=== PATIENT | female | born 1995 | race Caucasian/White ===

== ENCOUNTER 2018-11-28 11:01 | Inpatient (IN) | payer MEDICAID ==
[2018-11-28] MEDS ORDERED: Sodium Chloride 0.9% 10 ML Syringe FLUSH PRN (13:18)
[2018-11-28] MEDS ORDERED: Ondansetron 4 MG/2 ML SDV IV PRN (13:18)
[2018-11-28] MEDS ORDERED: Calcium Carbonate 500 MG Tab.Chew PO PRN (13:18)
[2018-11-28] MEDS ORDERED: fentaNYL 100 MCG/2 ML SDV IVPUSH PRN (13:18)
--- NOTE | 2018-11-28 13:28 | PCM.LDHP ---
L&D History of Present Illness - General Date of Service: 11/28/18 Admit Problem/Dx: Patient Status Order with Admit Dx/Problem 11/28/18 13:18 Patient Status [ADT] Routine Admission Diagnosis/Problem Admission Diagnosis/Problem Labor established Source of Information: Patient History Limitations: Reports: No Limitations - History of Present Illness Introduction:: 11/28/18 Kaleigh is a 23 yo at 40 0/7 here with SROM at home and latent labor. Her amnisure is positive here, she is unsure of a rupture time and thought it was just mucous. She started feeling "wet" around 1-2 am today. Her contractions are every 3-5 and palpate mild to moderate. SVE 4-5/50/-1 with membranes still felt. She is GBS neg, all STI's neg, rubella immune. 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 Para: 0 LMP (Approximate): Other Neuro History: hx epilepsy - Infectious Disease History Infectious Disease History: Reports: Chicken Pox Social & Family History - Family History Family Medical History: Noncontributory - Tobacco Use Smoking Status *Q: Never Smoker Second Hand Smoke Exposure: No - Caffeine Use Caffeine Use: Reports: Coffee, Soda - Recreational Drug Use Recreational Drug Use: No H&P Review of Systems - Review of Systems: Review Of Systems: See Below General: Reports: No Symptoms HEENT: Reports: No Symptoms Pulmonary: Reports: No Symptoms Cardiovascular: Reports: No Symptoms Gastrointestinal: Reports: No Symptoms Genitourinary: Reports: No Symptoms Musculoskeletal: Reports: No Symptoms Skin: Reports: No Symptoms Psychiatric: Reports: No Symptoms Neurological: Reports: No Symptoms Hematologic/Lymphatic: Reports: No Symptoms Immunologic: Reports: No Symptoms L&D Exam - Exam Exam: See Below - Vital Signs Vital Signs: Last Vital Signs Temp Pulse 133 H 11/28/18 11:40 Resp 18 11/28/18 11:40 BP 112/80 11/28/18 11:40 Pulse Ox 97 11/28/18 11:40 Weight: 79.5 kg - OB Specific Contraction Duration (sec): 30-110 Contraction Frequency (min): 2.5-9 Contraction Intensity: Mild to Moderate Movement: Active Heart Tones: Present Heart Tones per Min: 140 Heart Rate (FHR) Variability: Moderate (6-25 bmp) Presentation: Vertex Estimated Weight: 7 1/2# - Coley Score Coley Score Cervix Position: Midposition Coley Score Consistency: Soft Coley Score Effacement: 31-50% Coley Score Dilation: 3-4 cm Coley Score 's Station: -1 ,0 Coley Score Total: 8 - Exam General: Alert, Oriented HEENT: PERRLA, Conjunctiva Clear, EOMI, Hearing Intact, Mucosa Moist & [place], Nares Patent, Normal Nasal Septum, Posterior Pharynx Clear Neck: Supple, Trachea Midline Lungs: Clear to Auscultation, Normal Respiratory Effort Cardiovascular: Regular Rate, Regular Rhythm GI/Abdominal Exam: Normal Bowel Sounds, Soft, Non-Tender, No Organomegaly, No Distention, No Abnormal Bruit, No Mass, Pelvis Stable Rectal Exam: Normal Exam, Normal Rectal Tone Genitourinary: Normal external exam, Normal bimanual exam, Cervical dilitation Back Exam: Normal Inspection, Full Range of Motion Extremities: Normal Inspection, Normal Range of Motion, Non-Tender, No Pedal Edema, Normal Capillary Refill Skin: Warm, Dry, Intact Neurological: Cranial Nerves Intact, Reflexes Equal Bilateral Psychiatric: Alert, Normal Affect, Normal Mood - Patient Data Lab Results Last 24 hrs: Laboratory Results - last 24 hr 11/28/18 11/28/18 11/28/18 Range/Units 11:09 11:59 12:06 Urine Color Yellow (YELLOW) Urine Appearance Cloudy A (CLEAR) Urine pH 6.0 (5.0-8.0) Ur Specific [place] >= 1.030 (1.008-1.030) Urine Protein 30 H (NEGATIVE) mg/dL Urine Glucose (UA) Negative (NEGATIVE) mg/dL Urine Ketones Trace H (NEGATIVE) mg/dL Urine Occult Blood Large H (NEGATIVE) Urine Nitrite Negative (NEGATIVE) Urine Bilirubin Small H (NEGATIVE) Urine Urobilinogen 1.0 (0.2-1.0) EU/dL Ur Leukocyte Esterase Small H (NEGATIVE) Urine RBC Cancelled Urine WBC Cancelled Ur Epithelial Cells Cancelled Amorphous Sediment Cancelled Urine Bacteria Cancelled Urine Mucus Cancelled Urine Other Cancelled Urinalysis Comment Cancelled Membrane Rupture Positive H (NEGATIVE) Urine Opiates Screen Negative (NEGATIVE) Ur Oxycodone Screen Negative (NEGATIVE) Urine Methadone Screen Negative (NEGATIVE) Ur Propoxyphene Screen Negative (NEGATIVE) Ur Barbiturates Screen Negative (NEGATIVE) Ur Tricyclics Screen Negative (NEGATIVE) Ur Phencyclidine Scrn Negative (NEGATIVE) Ur Amphetamine Screen Negative (NEGATIVE) U Methamphetamines Scrn Negative (NEGATIVE) Urine MDMA Screen Negative (NEGATIVE) U Benzodiazepines Scrn Negative (NEGATIVE) U Cocaine Metab Screen Negative (NEGATIVE) U Marijuana (THC) Screen Negative (NEGATIVE) Result Diagrams: 11/28/18 13:18 - Problem List (1) Term SNOMED Code(s): 52440043 ICD Code: Z34.90 - ENCNTR FOR SUPRVSN OF NORMAL , UNSP, UNSP TRIMESTER Status: Acute Current Visit: Yes (2) Spontaneous rupture of amniotic membranes SNOMED Code(s): 599777245 ICD Code: UKS4138 - Status: Acute Current Visit: Yes (3) Active labor at term SNOMED Code(s): 32740592 ICD Code: [id number] - Status: Acute Current Visit: Yes Problem List Initiated/Reviewed/Updated: Yes Orders Last 24hrs: Active Orders 24 hr Category Date Time Status Patient Status [ADT] Routine ADT 11/28/18 13:18 Ordered Communication Order [RC] ASDIRECTED Care 11/28/18 13:18 Ordered Heart Tones [RC] PER UNIT ROUTINE Care 11/28/18 13:18 Ordered Notify Provider Vital Signs [RC] PRN Care 11/28/18 13:19 Ordered Notify Provider [RC] PRN Care 11/28/18 13:18 Ordered OB Check [OM.PC] Click to Edit Care 11/28/18 12:37 Ordered Up ad Haylee [RC] ASDIRECTED Care 11/28/18 13:18 Ordered VTE/DVT Education [RC] Click to Edit Care 11/28/18 13:20 Ordered Vital Signs [RC] PER UNIT ROUTINE Care 11/28/18 13:18 Ordered Regular Diet [DIET] Diet 11/28/18 Lunch Ordered CBC WITH AUTO DIFF [HEME] Routine Lab 11/28/18 13:18 Ordered UA W/MICROSCOPIC [URIN] Routine Lab 11/28/18 11:09 Ordered UA W/O MICROSCOPIC [URIN] Routine Lab 11/28/18 11:09 Ordered Calcium Carbonate [Tums] Med 11/28/18 13:18 Ordered 1,000 mg PO Q2HR PRN Ondansetron [Zofran] Med 11/28/18 13:18 Ordered 4 mg IV Q4H PRN Oxytocin/Normal Saline [Pitocin in NS 20 Units/1,000 ML Med 11/28/18 13:30 Ordered ] 20 unit in 1,000 ml IV ASDIRECTED Sodium Chloride 0.9% [Saline Flush] Med 11/28/18 13:18 Ordered 10 ml FLUSH ASDIRECTED PRN fentaNYL [Sublimaze] Med 11/28/18 13:18 Ordered 100 mcg IVPUSH Q1H PRN DVT/VTE Prophylaxis Reflex [OM.PC] Routine Oth 11/28/18 13:18 Ordered Saline Lock Insert [OM.PC] Routine Oth 11/28/18 13:18 Ordered Resuscitation Status Routine Resus Stat 11/28/18 13:18 Ordered Medication Orders Calcium Carbonate/Glycine (Tums) 1,000 mg PO Q2HR PRN PRN Reason: Indigestion Fentanyl (Sublimaze) 100 mcg IVPUSH Q1H PRN PRN Reason: Pain (moderate 4-6) Ondansetron HCl (Zofran) 4 mg IV Q4H PRN PRN Reason: Nausea/Vomiting Sodium Chloride (Saline Flush) 10 ml FLUSH ASDIRECTED PRN PRN Reason: Keep Vein Open Assessment/Plan Comment:: 11/28/18 23 yo at 40 0/7 weeks gestation SROM at unknown time, no meconium seen but scant fluid so unable to assess SVE 50/-1, latent labor Plan: Plans non medicated labor Anticipate Monitor contraction pattern and start pitocin or break the remaining bag of water if no progress due to unknown rupture time
--- NOTE | 2018-11-28 15:11 | PCM.PNLD ---
Labor Progress Note - VS & Meds Vital Signs: Last Vital Signs Temp 37.2 C 11/28/18 12:34 Pulse 96 11/28/18 12:34 Resp 18 11/28/18 12:34 BP 112/80 11/28/18 11:40 Pulse Ox 99 11/28/18 12:34 Active Medications: Current Medications Calcium Carbonate/Glycine (Tums) 1,000 mg PO Q2H PRN PRN Reason: Indigestion Fentanyl (Sublimaze) 100 mcg IVPUSH Q1H PRN PRN Reason: Pain (moderate 4-6) Oxytocin/Sodium Chloride (Pitocin In Ns 20 Units/1,000 Ml) 20 unit in 1,000 mls @ 999 mls/hr IV ASDIRECTED EARLINE; Protocol Oxytocin/Sodium Chloride (Pitocin In Ns 20 Units/1,000 Ml) 20 unit in 1,000 mls @ 6 mls/hr IV TITRATE EARLINE; Protocol Ondansetron HCl (Zofran) 4 mg IV Q4H PRN PRN Reason: Nausea/Vomiting Sodium Chloride (Saline Flush) 10 ml FLUSH ASDIRECTED PRN PRN Reason: Keep Vein Open - Uterine Contractions Uterine Monitoring Mode: External [place] Contraction Frequency (min): 2.5-9 Contraction Duration (sec): 30-110 Contraction Intensity: Mild to Moderate Uterine Resting Tone: Soft - Monitoring Monitor Mode: External Ultrasound Heart Rate (FHR) Variability: Moderate (6-25 bmp) Accelerations: Present, 15x15 Decelerations: None Strip Review: Category I - Vaginal Exam Dilation (cm): 5 Effacement (Percent): 50 Station: Ballotable Cervical Position: Midposition Sterile Vaginal Exam Performed By: Megan Dai - Labor Progress (Free Text) Labor Progress: 11/28/18 [place]ROE was much more ballotable this time. She does feel scant consistent leaking but there is no pooling. Her contraction pattern has not increased and they are not anymore painful. We will start pitocin titrate per protocol for unknown rupture time and inability to break the rest of the amniotic sac due to being ballotable. Patient is agreeable to this plan, all questions answered.
[2018-11-28] MEDS ORDERED: Naloxone 0.4 MG/ML SDV ONE (16:39)
[2018-11-28] MEDS ORDERED: Mineral Oil 10 ML Bottle ONE (16:39)
[2018-11-28] MEDS ORDERED: Oxytocin 10 Units/1 ML SDV ONE (16:39)
[2018-11-28] MEDS ORDERED: Lidocaine 1% 50 ML MDV ONE (16:39)
--- NOTE | 2018-11-28 20:38 | PCM.PNLD ---
Labor Progress Note - VS & Meds Vital Signs: Last Vital Signs Temp 37.2 C 11/28/18 19:30 Pulse 119 H 11/28/18 16:15 Resp 18 11/28/18 18:30 BP 112/78 11/28/18 18:30 Pulse Ox 97 11/28/18 18:30 Active Medications: Current Medications Calcium Carbonate/Glycine (Tums) 1,000 mg PO Q2H PRN PRN Reason: Indigestion Fentanyl (Sublimaze) 100 mcg IVPUSH Q1H PRN PRN Reason: Pain (moderate 4-6) Oxytocin/Sodium Chloride (Pitocin In Ns 20 Units/1,000 Ml) 20 unit in 1,000 mls @ 999 mls/hr IV ASDIRECTED EARLINE; Protocol Oxytocin/Sodium Chloride (Pitocin In Ns 20 Units/1,000 Ml) 20 unit in 1,000 mls @ 6 mls/hr IV TITRATE EARLINE; Protocol Last Titration: 11/28/18 18:30 Dose: 5 munits/min, 15 mls/hr Ondansetron HCl (Zofran) 4 mg IV Q4H PRN PRN Reason: Nausea/Vomiting Sodium Chloride (Saline Flush) 10 ml FLUSH ASDIRECTED PRN PRN Reason: Keep Vein Open Discontinued Medications Lidocaine HCl (Xylocaine 1%) Confirm Administered Dose 100 ml .ROUTE .STK-MED ONE Stop: 11/28/18 16:40 Mineral Oil (Muri-Lube) Confirm Administered Dose 10 ml .ROUTE .STK-MED ONE Stop: 11/28/18 16:40 Naloxone HCl (Narcan) Confirm Administered Dose 0.4 mg .ROUTE .STK-MED ONE Stop: 11/28/18 16:40 Oxytocin (Pitocin) Confirm Administered Dose 10 unit .ROUTE .STK-MED ONE Stop: 11/28/18 16:40 - Uterine Contractions Uterine Monitoring Mode: External [place] Contraction Frequency (min): 2-2.5 Contraction Duration (sec): 80-90 Contraction Intensity: Strong Uterine Resting Tone: Soft - Monitoring Monitor Mode: External Ultrasound Heart Rate (FHR) Variability: Moderate (6-25 bmp) Accelerations: Present, 15x15 Decelerations: None Strip Review: Category I - Vaginal Exam Dilation (cm): 6 Effacement (Percent): 70 Station: Ballotable Cervical Position: Midposition Sterile Vaginal Exam Performed By: Megan Dai - Labor Progress (Free Text) Labor Progress: 11/28/18 Patient progressed nicely in the tub and with pitocin. The head is well applied at this check and AROM is performed of the remaining bag. Large amount of clear fluid is seen. Category 1 tracing currently. Mother coping well with breathing and is thinking about nitrous oxide. Anticipate of female infant.
[2018-11-28] MEDS ORDERED: Lidocaine 1% 20 ML MDV INJECT ONE (23:28)
[2018-11-29] MEDS ORDERED: Lanolin 100% Cream 40 GM Tube TOP ONE
[2018-11-29] MEDS ORDERED: Witch Hazel Medicated Pads 100/Jar TOP PRN
[2018-11-29] MEDS ORDERED: Docusate Sodium 100 MG Cap PO PRN
[2018-11-29] MEDS ORDERED: Witch Hazel Medicated Pads 100/Jar TOP ONE
[2018-11-29] MEDS ORDERED: Benzocaine 20% Top Spray 56 GM Bottle TOP PRN
[2018-11-29] MEDS ORDERED: Hydrocortisone 2.5% Crm 30 GM Tube TOP PRN
[2018-11-29] MEDS ORDERED: Acetaminophen 325 MG Tab, 50 Tab Bulk Bottle PO PRN
[2018-11-29] MEDS ORDERED: Benzocaine 20% Top Spray 56 GM Bottle TOP ONE
[2018-11-29] MEDS ORDERED: Ibuprofen 200 MG Tab, 24 Tab Bulk Bottle PO PRN
[2018-11-29] MEDS ORDERED: Lanolin 100% Cream 40 GM Tube TOP PRN
--- NOTE | 2018-11-29 00:11 | PCM.DEL ---
L & D Note - General Info Date of Service: 11/28/18 Mother's Due Date: 11/28/18 - Delivery Note Labor: Augmented by ARM, Augmented by Oxytocin Delivery Outcome: Livebirth Delivery Method: Spontaneous Vaginal Delivery-Single Infant Delivery Mode: Spontaneous Presentation: Right Occiput Anterior (FLAVIO) Nuchal Cord: Present Anesthesia Type: Nitrous Oxide Anesthetic: Lidocaine (Xylocaine) 1% Plain Local Anesthetic Volume: Other (9 cc) Amniotic Fluid Description: Clear Episiotomy Type: None Laceration: 2nd Degree, Perineal Suture size: 3-0 Placenta: Intact, Spontaneous Cord: 3 Vessels Estimated Blood Loss: 250 Resuscitation Needed: No [place]: Bulb Syringe, Stimulated, Warmed Provider: Megan Dai Score 1 min: 9 Score 5 min: 9 Second Stage Interventions: Reports: Second Nurse Assessed Progress of Descent, Second Nurse Reviewed Contraction Pattern, Second Nurse Reviewed Heart Tones, Encouragement Given, Pushing Effectively, Pushing, Knee Chest Position Delivery Comments (Free Text/Narrative):: 11/28/18 23 yo G1 now P1 delivered a viable female infant at 2302. She had a positive amnisure and leaked a scant amount of fluid through out the day. There was a large bag ruptured artificially at 2022 that was clear. She was also augmented with pitocin. She initially tried to push with stirrups on her back and baby did not tolerate this. At that time pitocin was shut off and mother was rolled onto hands and knees which baby tolerated very well and this was the delivery position. She attempted nitrous oxide for a short period around 7 cm and did not like this. She ended up delivering without anesthesia. The baby delivered in FLAVIO position. There was a loose nuchal cord that was reduced, a cord around the arm, and again around the leg. There were no complications. Baby was warmed and dried and given to mother right at . Delayed cord clamping completed. The placenta delivered intact with a 3 vessel cord. Fundus firm. There was a second degree perineal laceration that was repaired with 1% lidocaine and 3-0 vicryl. Baby girl apgars 9,9. Wt 8 lb 1 oz, length 20.5 in. She cried spontaneously at and has already been to breast. Stages of labor: 2 - General Info Date of Service: 11/28/18 Functional Status: Reports: Pain Controlled - Review of Systems General: Reports: No Symptoms HEENT: Reports: No Symptoms Pulmonary: Reports: No Symptoms Cardiovascular: Reports: No Symptoms Gastrointestinal: Reports: No Symptoms Genitourinary: Reports: No Symptoms Musculoskeletal: Reports: No Symptoms Skin: Reports: No Symptoms Neurological: Reports: No Symptoms Psychiatric: Reports: No Symptoms - Patient Data Vitals - Most Recent: Last Vital Signs Temp 37.6 C 11/28/18 20:30 Pulse 122 H 11/28/18 20:30 Resp 18 11/28/18 20:30 BP 119/78 11/28/18 20:30 Pulse Ox 98 11/28/18 20:30 Weight - Most Recent: 79.5 kg Lab Results Last 24 Hours: Laboratory Results - last 24 hr 11/28/18 11/28/18 11/28/18 Range/Units 11:09 11:59 12:06 WBC (4.5-11.0) K/uL RBC (3.30-5.50) M/uL Hgb (12.0-15.0) g/dL Hct (36.0-48.0) % MCV (80-98) fL MCH (27-31) pg MCHC (32-36) % Plt Count (150-400) K/uL Neut % (Auto) (36-66) % Lymph % (Auto) (24-44) % [place] % (Auto) (2-6) % Eos % (Auto) (2-4) % Baso % (Auto) (0-1) % Urine Color Yellow (YELLOW) Urine Appearance Cloudy A (CLEAR) Urine pH 6.0 (5.0-8.0) Ur Specific [place] >= 1.030 (1.008-1.030) Urine Protein 30 H (NEGATIVE) mg/dL Urine Glucose (UA) Negative (NEGATIVE) mg/dL Urine Ketones Trace H (NEGATIVE) mg/dL Urine Occult Blood Large H (NEGATIVE) Urine Nitrite Negative (NEGATIVE) Urine Bilirubin Small H (NEGATIVE) Urine Urobilinogen 1.0 (0.2-1.0) EU/dL Ur Leukocyte Esterase Small H (NEGATIVE) Urine RBC Cancelled Urine WBC Cancelled Ur Epithelial Cells Cancelled Amorphous Sediment Cancelled Urine Bacteria Cancelled Urine Mucus Cancelled Urine Other Cancelled Urinalysis Comment Cancelled Membrane Rupture Positive H (NEGATIVE) Urine Opiates Screen Negative (NEGATIVE) Ur Oxycodone Screen Negative (NEGATIVE) Urine Methadone Screen Negative (NEGATIVE) Ur Propoxyphene Screen Negative (NEGATIVE) Ur Barbiturates Screen Negative (NEGATIVE) Ur Tricyclics Screen Negative (NEGATIVE) Ur Phencyclidine Scrn Negative (NEGATIVE) Ur Amphetamine Screen Negative (NEGATIVE) U Methamphetamines Scrn Negative (NEGATIVE) Urine MDMA Screen Negative (NEGATIVE) U Benzodiazepines Scrn Negative (NEGATIVE) U Cocaine Metab Screen Negative (NEGATIVE) U Marijuana (THC) Screen Negative (NEGATIVE) 11/28/18 Range/Units 13:18 WBC 8.5 (4.5-11.0) K/uL RBC 4.41 (3.30-5.50) M/uL Hgb 13.4 (12.0-15.0) g/dL Hct 40.1 (36.0-48.0) % MCV 91 (80-98) fL MCH 30 (27-31) pg MCHC 33 (32-36) % Plt Count 303 (150-400) K/uL Neut % (Auto) 62 (36-66) % Lymph % (Auto) 27 (24-44) % [place] % (Auto) 11 H (2-6) % Eos % (Auto) 1 L (2-4) % Baso % (Auto) 0 (0-1) % Urine Color (YELLOW) Urine Appearance (CLEAR) Urine pH (5.0-8.0) Ur Specific [place] (1.008-1.030) Urine Protein (NEGATIVE) mg/dL Urine Glucose (UA) (NEGATIVE) mg/dL Urine Ketones (NEGATIVE) mg/dL Urine Occult Blood (NEGATIVE) Urine Nitrite (NEGATIVE) Urine Bilirubin (NEGATIVE) Urine Urobilinogen (0.2-1.0) EU/dL Ur Leukocyte Esterase (NEGATIVE) Urine RBC Urine WBC Ur Epithelial Cells Amorphous Sediment Urine Bacteria Urine Mucus Urine Other Urinalysis Comment Membrane Rupture (NEGATIVE) Urine Opiates Screen (NEGATIVE) Ur Oxycodone Screen (NEGATIVE) Urine Methadone Screen (NEGATIVE) Ur Propoxyphene Screen (NEGATIVE) Ur Barbiturates Screen (NEGATIVE) Ur Tricyclics Screen (NEGATIVE) Ur Phencyclidine Scrn (NEGATIVE) Ur Amphetamine Screen (NEGATIVE) U Methamphetamines Scrn (NEGATIVE) Urine MDMA Screen (NEGATIVE) U Benzodiazepines Scrn (NEGATIVE) U Cocaine Metab Screen (NEGATIVE) U Marijuana (THC) Screen (NEGATIVE) Med Orders - Current: Current Medications Acetaminophen (Tylenol Bulk Bottle) 0 mg PO Q4H PRN PRN Reason: Pain Benzocaine (Pwvn-R-Heuqlus 20% [place]) 0 gm TOP ONETIME ONE Stop: 11/29/18 00:01 Benzocaine (Xtrs-H-Adiadfc 20% [place]) 1 gm TOP Q4H PRN PRN Reason: Other Calcium Carbonate/Glycine (Tums) 1,000 mg PO Q2H PRN PRN Reason: Indigestion Docusate Sodium (Colace) 100 mg PO BID PRN PRN Reason: Constipation Emollient Ointment (Lansinoh Hpa) 1 gm TOP ONETIME ONE Stop: 11/29/18 00:01 Emollient Ointment (Lansinoh Hpa) 40 gm TOP ASDIRECTED PRN PRN Reason: Other Fentanyl (Sublimaze) 100 mcg IVPUSH Q1H PRN PRN Reason: Pain (moderate 4-6) Hydrocortisone (Hydrocortisone 2.5% Crm) 1 gm TOP ASDIRECTED PRN PRN Reason: Other Oxytocin/Sodium Chloride (Pitocin In Ns 20 Units/1,000 Ml) 20 unit in 1,000 mls @ 999 mls/hr IV ASDIRECTED EARLINE; Protocol Oxytocin/Sodium Chloride (Pitocin In Ns 20 Units/1,000 Ml) 20 unit in 1,000 mls @ 6 mls/hr IV TITRATE EARLINE; Protocol Last Titration: 11/28/18 18:30 Dose: 5 munits/min, 15 mls/hr Ibuprofen (Motrin Bulk Bottle) 600 mg PO Q6H PRN PRN Reason: Pain Ondansetron HCl (Zofran) 4 mg IV Q4H PRN PRN Reason: Nausea/Vomiting Sodium Chloride (Saline Flush) 10 ml FLUSH ASDIRECTED PRN PRN Reason: Keep Vein Open Witch Magdalene (Tucks) 1 pad TOP ONETIME ONE Stop: 11/29/18 00:01 Witch Magdalene (Tucks) 1 pad TOP ASDIRECTED PRN PRN Reason: Other Discontinued Medications Lidocaine HCl (Xylocaine 1%) Confirm Administered Dose 100 ml .ROUTE .STK-MED ONE Stop: 11/28/18 16:40 Lidocaine HCl (Xylocaine 1%) 20 ml INJECT ONETIME ONE Stop: 11/28/18 23:29 Mineral Oil (Muri-Lube) Confirm Administered Dose 10 ml .ROUTE .STK-MED ONE Stop: 11/28/18 16:40 Naloxone HCl (Narcan) Confirm Administered Dose 0.4 mg .ROUTE .STK-MED ONE Stop: 11/28/18 16:40 Oxytocin (Pitocin) Confirm Administered Dose 10 unit .ROUTE .STK-MED ONE Stop: 11/28/18 16:40 - Exam General: Alert, Oriented HEENT: Pupils Equal, Pupils Reactive, EOMI, Mucous Membr. Moist/[place] Neck: Supple Lungs: Clear to Auscultation, Normal Respiratory Effort Cardiovascular: Regular Rate, Regular Rhythm GI/Abdominal Exam: Normal Bowel Sounds, Soft, Non-Tender, No Distention, Pelvis Stable (Female) Exam: Normal External Exam, Normal Bimanual Exam, Cervical Dilatation, Enlarged Uterus, Vaginal Bleeding, Vaginal Tears Back Exam: Normal Inspection, Full Range of Motion Extremities: Normal Inspection, Normal Range of Motion, Non-Tender, No Pedal Edema, Normal Capillary Refill Skin: Warm, Dry, Intact Neurological: No New Focal Deficit Psy/Mental Status: Alert, Normal Affect, Normal Mood - Problem List & Annotations (1) Term SNOMED Code(s): 29642578 Code(s): Z34.90 - ENCNTR FOR SUPRVSN OF NORMAL , UNSP, UNSP TRIMESTER Status: Acute Current Visit: Yes (2) Spontaneous rupture of amniotic membranes SNOMED Code(s): 745663752 Code(s): RCY2611 - Status: Acute Current Visit: Yes (3) Active labor at term SNOMED Code(s): 65317914 Code(s): NYQ4855 - Status: Acute Current Visit: Yes (4) Vaginal delivery SNOMED Code(s): 450394139 Code(s): O80 - ENCOUNTER FOR FULL-TERM UNCOMPLICATED DELIVERY Status: Acute Current Visit: Yes (5) Second degree perineal laceration SNOMED Code(s): 4422396 Code(s): O70.1 - SECOND DEGREE PERINEAL LACERATION DURING DELIVERY Status: Acute Current Visit: Yes (6) started SNOMED Code(s): 505747108 Code(s): NRU9629 - Status: Acute Current Visit: Yes - Problem List Review Problem List Initiated/Reviewed/Updated: Yes - My Orders Last 24 Hours: My Active Orders 11/28/18 11:09 UA W/MICROSCOPIC [URIN] Routine UA W/O MICROSCOPIC [URIN] Routine 11/28/18 12:37 OB Check [OM.PC] Click to Edit 11/28/18 13:18 Patient Status [ADT] Routine Communication Order [RC] ASDIRECTED Notify Provider [RC] PRN Up ad Haylee [RC] ASDIRECTED Vital Signs [RC] PER UNIT ROUTINE Calcium Carbonate [Tums] 1,000 mg PO Q2H PRN Ondansetron [Zofran] 4 mg IV Q4H PRN Sodium Chloride 0.9% [Saline Flush] 10 ml FLUSH ASDIRECTED PRN fentaNYL [Sublimaze] 100 mcg IVPUSH Q1H PRN DVT/VTE Prophylaxis Reflex [OM.PC] Routine Saline Lock Insert [OM.PC] Routine Resuscitation Status Routine 11/28/18 13:19 Notify Provider Vital Signs [RC] PRN 11/28/18 13:20 VTE/DVT Education [RC] Click to Edit 11/28/18 13:30 Oxytocin/Normal Saline [Pitocin in NS 20 Units/1,000 ML] 20 unit in 1,000 ml IV ASDIRECTED 11/28/18 13:34 CULTURE URINE [RM] Routine 11/28/18 15:15 Oxytocin/Normal Saline [Pitocin in NS 20 Units/1,000 ML] 20 unit in 1,000 ml IV TITRATE 11/28/18 Lunch Regular Diet [DIET] 11/29/18 00:00 Consult to Sausage Machine Operator [CONS] Routine Acetaminophen [Tylenol Bulk Bottle] See Dose Instructions PO Q4H PRN Benzocaine [Mumo-Y-Zgdqbpa 20% [place]] 1 gm TOP Q4H PRN Benzocaine [Lgom-K-[place] 20% [place]] See Dose Instructions TOP ONETIME ONE Docusate Sodium [Colace] 100 mg PO BID PRN Hydrocortisone [Hydrocortisone 2.5% Crm] 1 gm TOP ASDIRECTED PRN Ibuprofen [Motrin Bulk Bottle] 600 mg PO Q6H PRN Lanolin [Lansinoh HPA] 1 gm TOP ONETIME ONE Lanolin [Lansinoh HPA] 40 gm TOP ASDIRECTED PRN Witch Magdalene [Tucks] 1 pad TOP ASDIRECTED PRN Witch Magdalene [Tucks] 1 pad TOP ONETIME ONE Assess Lochia [WOMSER] Per Unit Routine Assess Uterine Involution [WOMSER] Per Unit Routine 11/29/18 00:01 Patient Status [ADT] Routine Vital Signs [RC] PFP Ice Therapy [OM.PC] Per Unit Routine Perineal Care [OM.PC] Per Unit Routine Peripheral IV Discontinue [OM.PC] Routine Sitz Bath [OM.PC] Per Unit Routine 11/29/18 05:11 CBC WITH AUTO DIFF [HEME] AM - Assessment Assessment:: 11/28/18 23 yo with at 40 0/7 weeks Second degree laceration repaired initiated FF EBL 250 ml - Plan Plan:: 11/28/18 23 yo at 40 0/7 weeks gestation SROM at unknown time, no meconium seen but scant fluid so unable to assess SVE /-1, latent labor Plan: Plans non medicated labor Anticipate Monitor contraction pattern and start pitocin or break the remaining bag of water if no progress due to unknown rupture time 11/28/18 Routine cares support Perineal care Hemoglobin in am Anticipate 24-48 hour stay
--- NOTE | 2018-11-29 09:28 | PCM.PNPP ---
- General Info Date of Service: 11/29/18 Functional Status: Reports: Pain Controlled - Review of Systems General: Reports: No Symptoms HEENT: Reports: No Symptoms Pulmonary: Reports: No Symptoms Cardiovascular: Reports: No Symptoms Gastrointestinal: Reports: No Symptoms Genitourinary: Reports: No Symptoms Musculoskeletal: Reports: No Symptoms Skin: Reports: No Symptoms Neurological: Reports: No Symptoms Psychiatric: Reports: No Symptoms - General Info Date of Service: 11/29/18 - Patient Data Vital Signs - Most Recent: Last Vital Signs Temp 37.2 C 11/29/18 07:59 Pulse 72 11/29/18 07:59 Resp 18 11/29/18 07:59 BP 108/55 L 11/29/18 07:59 Pulse Ox 97 11/29/18 07:59 Weight - Most Recent: 79.5 kg I&O - Last 24 Hours: Intake & Output 11/28/18 11/29/18 11/29/18 22:59 06:59 14:59 Intake Total 1000 Balance 1000 Lab Results - Last 24 Hours: Laboratory Results - last 24 hr 11/28/18 11/28/18 11/28/18 Range/Units 11:09 11:59 12:06 WBC (4.5-11.0) K/uL RBC (3.30-5.50) M/uL Hgb (12.0-15.0) g/dL Hct (36.0-48.0) % MCV (80-98) fL MCH (27-31) pg MCHC (32-36) % Plt Count (150-400) K/uL Neut % (Auto) (36-66) % Lymph % (Auto) (24-44) % [place] % (Auto) (2-6) % Eos % (Auto) (2-4) % Baso % (Auto) (0-1) % Urine Color Yellow (YELLOW) Urine Appearance Cloudy A (CLEAR) Urine pH 6.0 (5.0-8.0) Ur Specific [place] >= 1.030 (1.008-1.030) Urine Protein 30 H (NEGATIVE) mg/dL Urine Glucose (UA) Negative (NEGATIVE) mg/dL Urine Ketones Trace H (NEGATIVE) mg/dL Urine Occult Blood Large H (NEGATIVE) Urine Nitrite Negative (NEGATIVE) Urine Bilirubin Small H (NEGATIVE) Urine Urobilinogen 1.0 (0.2-1.0) EU/dL Ur Leukocyte Esterase Small H (NEGATIVE) Urine RBC Cancelled Urine WBC Cancelled Ur Epithelial Cells Cancelled Amorphous Sediment Cancelled Urine Bacteria Cancelled Urine Mucus Cancelled Urine Other Cancelled Urinalysis Comment Cancelled Membrane Rupture Positive H (NEGATIVE) Urine Opiates Screen Negative (NEGATIVE) Ur Oxycodone Screen Negative (NEGATIVE) Urine Methadone Screen Negative (NEGATIVE) Ur Propoxyphene Screen Negative (NEGATIVE) Ur Barbiturates Screen Negative (NEGATIVE) Ur Tricyclics Screen Negative (NEGATIVE) Ur Phencyclidine Scrn Negative (NEGATIVE) Ur Amphetamine Screen Negative (NEGATIVE) U Methamphetamines Scrn Negative (NEGATIVE) Urine MDMA Screen Negative (NEGATIVE) U Benzodiazepines Scrn Negative (NEGATIVE) U Cocaine Metab Screen Negative (NEGATIVE) U Marijuana (THC) Screen Negative (NEGATIVE) 11/28/18 11/29/18 Range/Units 13:18 04:10 WBC 8.5 15.1 H (4.5-11.0) K/uL RBC 4.41 3.73 (3.30-5.50) M/uL Hgb 13.4 11.5 L (12.0-15.0) g/dL Hct 40.1 34.0 L (36.0-48.0) % MCV 91 91 (80-98) fL MCH 30 31 (27-31) pg MCHC 33 34 (32-36) % Plt Count 303 273 (150-400) K/uL Neut % (Auto) 62 78 H (36-66) % Lymph % (Auto) 27 11 L (24-44) % [place] % (Auto) 11 H 11 H (2-6) % Eos % (Auto) 1 L 0 L (2-4) % Baso % (Auto) 0 0 (0-1) % Urine Color (YELLOW) Urine Appearance (CLEAR) Urine pH (5.0-8.0) Ur Specific [place] (1.008-1.030) Urine Protein (NEGATIVE) mg/dL Urine Glucose (UA) (NEGATIVE) mg/dL Urine Ketones (NEGATIVE) mg/dL Urine Occult Blood (NEGATIVE) Urine Nitrite (NEGATIVE) Urine Bilirubin (NEGATIVE) Urine Urobilinogen (0.2-1.0) EU/dL Ur Leukocyte Esterase (NEGATIVE) Urine RBC Urine WBC Ur Epithelial Cells Amorphous Sediment Urine Bacteria Urine Mucus Urine Other Urinalysis Comment Membrane Rupture (NEGATIVE) Urine Opiates Screen (NEGATIVE) Ur Oxycodone Screen (NEGATIVE) Urine Methadone Screen (NEGATIVE) Ur Propoxyphene Screen (NEGATIVE) Ur Barbiturates Screen (NEGATIVE) Ur Tricyclics Screen (NEGATIVE) Ur Phencyclidine Scrn (NEGATIVE) Ur Amphetamine Screen (NEGATIVE) U Methamphetamines Scrn (NEGATIVE) Urine MDMA Screen (NEGATIVE) U Benzodiazepines Scrn (NEGATIVE) U Cocaine Metab Screen (NEGATIVE) U Marijuana (THC) Screen (NEGATIVE) Med Orders - Current: Current Medications Acetaminophen (Tylenol Bulk Bottle) 0 mg PO Q4H PRN PRN Reason: Pain Last Admin: 11/29/18 00:39 Dose: 1 bottle Benzocaine (Ogql-X-Inhypvp 20% Bud) 1 gm TOP Q4H PRN PRN Reason: Other Last Admin: 11/29/18 00:37 Dose: 1 applic Calcium Carbonate/Glycine (Tums) 1,000 mg PO Q2H PRN PRN Reason: Indigestion Docusate Sodium (Colace) 100 mg PO BID PRN PRN Reason: Constipation Emollient Ointment (Lansinoh Hpa) 40 gm TOP ASDIRECTED PRN PRN Reason: Other Last Admin: 11/29/18 00:37 Dose: 1 applic Hydrocortisone (Hydrocortisone 2.5% Crm) 1 gm TOP ASDIRECTED PRN PRN Reason: Other Ibuprofen (Motrin Bulk Bottle) 600 mg PO Q6H PRN PRN Reason: Pain Last Admin: 11/29/18 00:39 Dose: 1 bottle Ondansetron HCl (Zofran) 4 mg IV Q4H PRN PRN Reason: Nausea/Vomiting Sodium Chloride (Saline Flush) 10 ml FLUSH ASDIRECTED PRN PRN Reason: Keep Vein Open Witch Magdalene (Tucks) 1 pad TOP ASDIRECTED PRN PRN Reason: Other Last Admin: 11/29/18 00:38 Dose: 1 pad Discontinued Medications Benzocaine (Vzzh-B-Xorerej 20% Bud) 0 gm TOP ONETIME ONE Stop: 11/29/18 00:01 Last Admin: 11/29/18 00:38 Dose: Not Given Emollient Ointment (Lansinoh Hpa) 1 gm TOP ONETIME ONE Stop: 11/29/18 00:01 Last Admin: 11/29/18 00:38 Dose: Not Given Fentanyl (Sublimaze) 100 mcg IVPUSH Q1H PRN PRN Reason: Pain (moderate 4-6) Oxytocin/Sodium Chloride (Pitocin In Ns 20 Units/1,000 Ml) 20 unit in 1,000 mls @ 999 mls/hr IV ASDIRECTED EARLINE; Protocol Oxytocin/Sodium Chloride (Pitocin In Ns 20 Units/1,000 Ml) 20 unit in 1,000 mls @ 6 mls/hr IV TITRATE EARLINE; Protocol Last Titration: 11/28/18 18:30 Dose: 5 munits/min, 15 mls/hr Lidocaine HCl (Xylocaine 1%) Confirm Administered Dose 100 ml .ROUTE .STK-MED ONE Stop: 11/28/18 16:40 Last Admin: 11/28/18 23:30 Dose: Not Given Lidocaine HCl (Xylocaine 1%) 20 ml INJECT ONETIME ONE Stop: 11/28/18 23:29 Last Admin: 11/28/18 23:28 Dose: 20 ml Mineral Oil (Muri-Lube) Confirm Administered Dose 10 ml .ROUTE .STK-MED ONE Stop: 11/28/18 16:40 Last Admin: 11/28/18 23:29 Dose: Not Given Naloxone HCl (Narcan) Confirm Administered Dose 0.4 mg .ROUTE .STK-MED ONE Stop: 11/28/18 16:40 Last Admin: 11/28/18 23:29 Dose: Not Given Oxytocin (Pitocin) Confirm Administered Dose 10 unit .ROUTE .STK-MED ONE Stop: 11/28/18 16:40 Last Admin: 11/28/18 23:29 Dose: Not Given Witch Magdalene (Tucks) 1 pad TOP ONETIME ONE Stop: 11/29/18 00:01 Last Admin: 11/29/18 00:39 Dose: Not Given - Infant Interaction Infant Disposition, : [place] in Room with Family Infant Interaction: Holding Feeding: Breastfed Infant; Nursed Well Support Person: Significant Other - Recovery Exam Fundal Tone: Firm Fundal Level: 3 Fingerbreadths Above Umbilicus Fundal Placement: Midline Lochia Amount: Small Lochia Color: Rubra/Red Perineum Description: Intact, Minimal Bruising/Swelling Episiotomy/Laceration: Approximated Bladder Status: Voiding - Exam General: Alert, Oriented HEENT: Pupils Equal Neck: Supple Lungs: Clear to Auscultation, Normal Respiratory Effort Cardiovascular: Regular Rate, Regular Rhythm GI/Abdominal Exam: Normal Bowel Sounds, Soft, Non-Tender, No Organomegaly, No Distention, No Mass, Pelvis Stable Extremities: Normal Inspection, Normal Range of Motion, Non-Tender, No Pedal Edema, Normal Capillary Refill Skin: Warm, Dry, Intact Neurological: No New Focal Deficit Psy/Mental Status: Alert, Normal Affect, Normal Mood - Problem List & Annotations (1) Term SNOMED Code(s): 86712521 Code(s): Z34.90 - ENCNTR FOR SUPRVSN OF NORMAL , UNSP, UNSP TRIMESTER Status: Acute Current Visit: Yes (2) Spontaneous rupture of amniotic membranes SNOMED Code(s): 718077011 Code(s): QCK8914 - Status: Acute Current Visit: Yes (3) Active labor at term SNOMED Code(s): 33794102 Code(s): BXT5496 - Status: Acute Current Visit: Yes (4) Vaginal delivery SNOMED Code(s): 948670379 Code(s): O80 - ENCOUNTER FOR FULL-TERM UNCOMPLICATED DELIVERY Status: Acute Current Visit: Yes (5) Second degree perineal laceration SNOMED Code(s): 6013878 Code(s): O70.1 - SECOND DEGREE PERINEAL LACERATION DURING DELIVERY Status: Acute Current Visit: Yes (6) started SNOMED Code(s): 057489121 Code(s): CNB1831 - Status: Acute Current Visit: Yes - Problem List Review Problem List Initiated/Reviewed/Updated: Yes - My Orders Last 24 Hours: My Active Orders 11/28/18 11:09 UA W/MICROSCOPIC [URIN] Routine UA W/O MICROSCOPIC [URIN] Routine 11/28/18 12:37 OB Check [OM.PC] Click To Edit 11/28/18 13:18 Patient Status [ADT] Routine Notify Provider [RC] PRN Up ad Haylee [RC] ASDIRECTED Calcium Carbonate [Tums] 1,000 mg PO Q2H PRN Ondansetron [Zofran] 4 mg IV Q4H PRN Sodium Chloride 0.9% [Saline Flush] 10 ml FLUSH ASDIRECTED PRN DVT/VTE Prophylaxis Reflex [OM.PC] Routine Saline Lock Insert [OM.PC] Routine Resuscitation Status Routine 11/28/18 13:19 Notify Provider Vital Signs [RC] PRN 11/28/18 13:20 VTE/DVT Education [RC] Click to Edit 11/28/18 13:34 CULTURE URINE [RM] Routine 11/28/18 Lunch Regular Diet [DIET] 11/29/18 00:00 Consult to Market Research Assistant [CONS] Routine Acetaminophen [Tylenol Bulk Bottle] See Dose Instructions PO Q4H PRN Benzocaine [Kgtq-S-Oqvtcfa 20% Bud] 1 gm TOP Q4H PRN Docusate Sodium [Colace] 100 mg PO BID PRN Hydrocortisone [Hydrocortisone 2.5% Crm] 1 gm TOP ASDIRECTED PRN Ibuprofen [Motrin Bulk Bottle] 600 mg PO Q6H PRN Lanolin [Lansinoh HPA] 40 gm TOP ASDIRECTED PRN Witch Magdalene [Tucks] 1 pad TOP ASDIRECTED PRN Assess Lochia [WOMSER] Per Unit Routine Assess Uterine Involution [WOMSER] Per Unit Routine 11/29/18 00:01 Patient Status [ADT] Routine Vital Signs [RC] PFP Ice Therapy [OM.PC] Per Unit Routine Perineal Care [OM.PC] Per Unit Routine Peripheral IV Discontinue [OM.PC] Routine Sitz Bath [OM.PC] Per Unit Routine - Assessment Assessment:: 11/28/18 23 yo with at 40 0/7 weeks Second degree laceration repaired initiated FF EBL 250 ml 11/29/18 PP day 1 FF, up and off to the right, some difficulty with voiding (small amounts, feels the urge) Second degree perineal laceration is well approximated, no periurethral tears Hgb 11.5 today down from 13.4 started, going fair Pain controlled - Plan Plan:: 11/28/18 23 yo at 40 0/7 weeks gestation SROM at unknown time, no meconium seen but scant fluid so unable to assess SVE /-1, latent labor Plan: Plans non medicated labor Anticipate Monitor contraction pattern and start pitocin or break the remaining bag of water if no progress due to unknown rupture time 11/28/18 Routine cares support Perineal care Hemoglobin in am Anticipate 24-48 hour stay 11/29/18 Routine cares Perineal cares and use hemorrhoids cream today Soak in the tub support Anticipate discharge home tomorrow Monitor voiding and output, if no large void and if uterus stays to the right bladder scan patient Needs pump
--- NOTE | 2018-11-30 10:12 | PCM.PNPP ---
- General Info Date of Service: 11/30/18 Functional Status: Reports: Pain Controlled - Review of Systems General: Reports: No Symptoms HEENT: Reports: No Symptoms Pulmonary: Reports: No Symptoms Cardiovascular: Reports: No Symptoms Gastrointestinal: Reports: No Symptoms Genitourinary: Reports: No Symptoms Musculoskeletal: Reports: No Symptoms Skin: Reports: No Symptoms Neurological: Reports: No Symptoms Psychiatric: Reports: No Symptoms - General Info Date of Service: 11/30/18 - Patient Data Vital Signs - Most Recent: Last Vital Signs Temp 36.7 C 11/30/18 07:13 Pulse 58 L 11/30/18 07:13 Resp 16 11/30/18 07:13 BP 96/61 11/30/18 07:13 Pulse Ox 98 11/30/18 07:13 Weight - Most Recent: 79.5 kg I&O - Last 24 Hours: Intake & Output 11/29/18 11/30/18 11/30/18 22:59 06:59 14:59 Intake Total 600 1200 Output Total 1200 Balance 600 0 Micro Results - Last 24 Hours: Microbiology 11/28/18 13:34 Urine Culture - Preliminary Urine, Clean Catch MIXED POSITIVE YG DAY 1 Med Orders - Current: Current Medications Acetaminophen (Tylenol Bulk Bottle) 0 mg PO Q4H PRN PRN Reason: Pain Last Admin: 11/29/18 00:39 Dose: 1 bottle Benzocaine (Zaip-W-Zfmohwk 20% [place]) 1 gm TOP Q4H PRN PRN Reason: Other Last Admin: 11/29/18 00:37 Dose: 1 applic Calcium Carbonate/Glycine (Tums) 1,000 mg PO Q2H PRN PRN Reason: Indigestion Docusate Sodium (Colace) 100 mg PO BID PRN PRN Reason: Constipation Emollient Ointment (Lansinoh Hpa) 40 gm TOP ASDIRECTED PRN PRN Reason: Other Last Admin: 11/29/18 00:37 Dose: 1 applic Hydrocortisone (Hydrocortisone 2.5% Crm) 1 gm TOP ASDIRECTED PRN PRN Reason: Other Ibuprofen (Motrin Bulk Bottle) 600 mg PO Q6H PRN PRN Reason: Pain Last Admin: 11/29/18 00:39 Dose: 1 bottle Ondansetron HCl (Zofran) 4 mg IV Q4H PRN PRN Reason: Nausea/Vomiting Sodium Chloride (Saline Flush) 10 ml FLUSH ASDIRECTED PRN PRN Reason: Keep Vein Open Witch Magdalene (Tucks) 1 pad TOP ASDIRECTED PRN PRN Reason: Other Last Admin: 11/29/18 00:38 Dose: 1 pad Discontinued Medications Benzocaine (Wtol-D-Voelksq 20% [place]) 0 gm TOP ONETIME ONE Stop: 11/29/18 00:01 Last Admin: 11/29/18 00:38 Dose: Not Given Emollient Ointment (Lansinoh Hpa) 1 gm TOP ONETIME ONE Stop: 11/29/18 00:01 Last Admin: 11/29/18 00:38 Dose: Not Given Fentanyl (Sublimaze) 100 mcg IVPUSH Q1H PRN PRN Reason: Pain (moderate 4-6) Oxytocin/Sodium Chloride (Pitocin In Ns 20 Units/1,000 Ml) 20 unit in 1,000 mls @ 999 mls/hr IV ASDIRECTED EARLINE; Protocol Oxytocin/Sodium Chloride (Pitocin In Ns 20 Units/1,000 Ml) 20 unit in 1,000 mls @ 6 mls/hr IV TITRATE EARLINE; Protocol Last Titration: 11/28/18 18:30 Dose: 5 munits/min, 15 mls/hr Lidocaine HCl (Xylocaine 1%) Confirm Administered Dose 100 ml .ROUTE .STK-MED ONE Stop: 11/28/18 16:40 Last Admin: 11/28/18 23:30 Dose: Not Given Lidocaine HCl (Xylocaine 1%) 20 ml INJECT ONETIME ONE Stop: 11/28/18 23:29 Last Admin: 11/28/18 23:28 Dose: 20 ml Mineral Oil (Muri-Lube) Confirm Administered Dose 10 ml .ROUTE .STK-MED ONE Stop: 11/28/18 16:40 Last Admin: 11/28/18 23:29 Dose: Not Given Naloxone HCl (Narcan) Confirm Administered Dose 0.4 mg .ROUTE .STK-MED ONE Stop: 11/28/18 16:40 Last Admin: 11/28/18 23:29 Dose: Not Given Oxytocin (Pitocin) Confirm Administered Dose 10 unit .ROUTE .STK-MED ONE Stop: 11/28/18 16:40 Last Admin: 11/28/18 23:29 Dose: Not Given Witch Magdalene (Tucks) 1 pad TOP ONETIME ONE Stop: 11/29/18 00:01 Last Admin: 11/29/18 00:39 Dose: Not Given - Interaction Disposition, : [place] in Room with Family Infant Interaction: Holding Infant Infant Feeding: Breastfed ; Nursed Well Support Person: Significant Other - Recovery Exam Fundal Tone: Firm Fundal Level: 2 Fingerbreadths Above Umbilicus Fundal Placement: Right Lochia Amount: Small Lochia Color: Rubra/Red Perineum Description: Intact, Minimal Bruising/Swelling Episiotomy/Laceration: Approximated Bladder Status: Voiding Urinary Elimination: Voided - Exam General: Alert, Oriented HEENT: Pupils Equal Neck: Supple Lungs: Clear to Auscultation, Normal Respiratory Effort Cardiovascular: Regular Rate, Regular Rhythm GI/Abdominal Exam: Normal Bowel Sounds, Soft, Non-Tender, No Distention, No Mass , Pelvis Stable Extremities: Normal Inspection, Normal Range of Motion, Non-Tender, No Pedal Edema, Normal Capillary Refill Skin: Warm, Dry, Intact Neurological: No New Focal Deficit Psy/Mental Status: Alert, Normal Affect, Normal Mood - Problem List & Annotations (1) Term SNOMED Code(s): 79744108 Code(s): Z34.90 - ENCNTR FOR SUPRVSN OF NORMAL , UNSP, UNSP TRIMESTER Status: Acute Current Visit: Yes (2) Spontaneous rupture of amniotic membranes SNOMED Code(s): 216381359 Code(s): JEJ7673 - Status: Acute Current Visit: Yes (3) Active labor at term SNOMED Code(s): 12373026 Code(s): OIP3668 - Status: Acute Current Visit: Yes (4) Vaginal delivery SNOMED Code(s): 408404791 Code(s): O80 - ENCOUNTER FOR FULL-TERM UNCOMPLICATED DELIVERY Status: Acute Current Visit: Yes (5) Second degree perineal laceration SNOMED Code(s): 1297654 Code(s): O70.1 - SECOND DEGREE PERINEAL LACERATION DURING DELIVERY Status: Acute Current Visit: Yes (6) started SNOMED Code(s): 313351648 Code(s): FJJ6114 - Status: Acute Current Visit: Yes - Problem List Review Problem List Initiated/Reviewed/Updated: Yes - Assessment Assessment:: 11/28/18 23 yo with at 40 0/7 weeks Second degree laceration repaired initiated FF EBL 250 ml 11/29/18 PP day 1 FF, up and off to the right, some difficulty with voiding (small amounts, feels the urge) Second degree perineal laceration is well approximated, no periurethral tears Hgb 11.5 today down from 13.4 started, going fair Pain controlled 11/30/18 PP day 2 FF, bleeding light Voiding without difficulty going well AVSS - Plan Plan:: 11/28/18 23 yo at 40 0/7 weeks gestation SROM at unknown time, no meconium seen but scant fluid so unable to assess SVE /-1, latent labor Plan: Plans non medicated labor Anticipate Monitor contraction pattern and start pitocin or break the remaining bag of water if no progress due to unknown rupture time 11/28/18 Routine cares support Perineal care Hemoglobin in am Anticipate 24-48 hour stay 11/29/18 Routine cares Perineal cares and use hemorrhoids cream today Soak in the tub support Anticipate discharge home tomorrow Monitor voiding and output, if no large void and if uterus stays to the right bladder scan patient Needs pump 11/30/18 Discharge home today 6 week pp check with Caren Continue support as needed
== END 2018-11-30 14:00 | disposition home or self-care (01) | DRG 807 ==
LOC: JP.OBCHECK 11:01 → JP.OB 13:17 → OBSVTOIN 23:03 → JP.MS 11-29
PROVIDERS: ADMIT Advanced Practice Midwife; ATTEND Advanced Practice Midwife
PROC: 10E0XZZ Delivery of Products of Conception, External Approach (ICD-10-PCS; principal; 2018-11-28)
PROC: 0KQM0ZZ Repair Perineum Muscle, Open Approach (ICD-10-PCS; 2018-11-28)
PROC: 10907ZC Drainage of Amniotic Fluid, Therapeutic from Products of Conception, Via Natural or Artificial Opening (ICD-10-PCS; 2018-11-28)
DX: O48.0 Post-term pregnancy (principal); O70.1 Second degree perineal laceration during delivery; O69.81X0 Labor and delivery complicated by cord around neck, without compression, not applicable or unspecified; O69.82X0 Labor and delivery complicated by other cord entanglement, without compression, not applicable or unspecified; Z37.0 Single live birth; Z3A.40 40 weeks gestation of pregnancy; Z79.899 Other long term (current) drug therapy
CPT/HCPCS: 36415; 59409; 80305-QW; 81003; 84112; 85025; 87086; 99211; A9270-GY; J2001; J2590